=== PATIENT | female | born 1990 | race American Indian/Alaskan Native ===

== ENCOUNTER 2017-05-31 21:20 | Emergency (ER) | payer BC ==
[2017-06-01] MEDS ORDERED: ZOFRAN ORAL LIQ PO ONE (00:19)
[2017-06-01] MEDS ORDERED: TYLENOL PO ONE (00:19)
--- NOTE | 2017-06-01 00:19 | Emergency Department Report ---
ED General Adult HPI - General Chief complaint: Headache Stated complaint: HEADACHE Time Seen by Provider: 06/01/17 00:01 Source: patient, family, RN notes reviewed Mode of arrival: Ambulatory Limitations: No Limitations - History of Present Illness Initial comments: This is a 26-year-old female, the patient is previously unknown to this provider. She denies chronic medical conditions. Patient admits to chronic and frequent headaches. The patient presents to the ER complaining of right- sided headache, which is retro-orbital, retroauricular, radiates to the neck, present for 3 days. The pain is achy and throbbing, it is intermittent and waxing and waning over the past 3 days. The headache is not sudden or thunderclap in nature, and it did not reach maximal testing within an hour. There is no fevers. No ear pain. No change in auditory acuity. A few episodes of nausea and vomiting. Headache does not have exacerbating or relieving factors, patient is not certain if she is . -: Gradual Location: head Radiation: neck Consistency: intermittent Improves with: none Worsens with: none Associated Symptoms: nausea/vomiting, weakness - Related Data Previous Rx's Medication Instructions Recorded Last Taken Type Acetaminophen [Tylenol Arthritis] 650 mg PO Q6HR PRN #30 tablet.er 06/01/17 Unknown Rx Ibuprofen [Motrin] 600 mg PO Q8H PRN #30 tablet 06/01/17 Unknown Rx Metoclopramide [Reglan] 10 mg PO QID PRN #30 tablet 06/01/17 Unknown Rx Allergies Allergy/AdvReac Type Severity Reaction Status Date / Time Sulfa (Sulfonamide Allergy Rash Verified 05/31/17 21:51 Antibiotics) ED Review of Systems ROS: Stated complaint: HEADACHE Other details as noted in HPI Constitutional: malaise. denies: fever Eyes: denies: eye discharge, vision change ENT: denies: ear pain, throat pain Respiratory: denies: cough Cardiovascular: denies: chest pain Gastrointestinal: vomiting Genitourinary: denies: dysuria Musculoskeletal: denies: back pain Skin: denies: lesions Neurological: weakness ED Past Medical Hx - Past Medical History Previous Medical History?: No - Surgical History Past Surgical History?: No - Social History Smoking Status: Never Smoker Substance Use Type: None - Medications Home Medications: Home Medications Medication Instructions Recorded Confirmed Last Taken Type Acetaminophen [Tylenol Arthritis] 650 mg PO Q6HR PRN #30 tablet.er 06/01/17 Unknown Rx Ibuprofen [Motrin] 600 mg PO Q8H PRN #30 tablet 06/01/17 Unknown Rx Metoclopramide [Reglan] 10 mg PO QID PRN #30 tablet 06/01/17 Unknown Rx ED Physical Exam - General Limitations: No Limitations General appearance: alert, in no apparent distress - Head Head exam: Present: atraumatic, normocephalic - Eye Eye exam: Present: normal appearance, PERRL, EOMI, other (visual acuity intact to finger counting, color perception, reading at a close distance). Absent: nystagmus - ENT ENT exam: Present: normal exam, normal orophraynx, mucous membranes moist, TM's normal bilaterally, normal external ear exam, other (there is no mastoid tenderness. No vesicles noted.) - Neck Neck exam: Present: normal inspection, full ROM, other (no meningeal signs). Absent: tenderness, meningismus - Respiratory Respiratory exam: Present: normal lung sounds bilaterally. Absent: respiratory distress, wheezes, rales, rhonchi, stridor, chest wall tenderness, accessory muscle use, decreased breath sounds, prolonged expiratory - Cardiovascular Cardiovascular Exam: Present: regular rate, normal rhythm, normal heart sounds. Absent: bradycardia, tachycardia, irregular rhythm, systolic murmur, diastolic murmur, rubs, gallop - GI/Abdominal GI/Abdominal exam: Present: soft, normal bowel sounds. Absent: distended, tenderness, guarding, rebound, rigid, pulsatile mass - Extremities Exam Extremities exam: Present: normal inspection, full ROM, normal capillary refill. Absent: tenderness, pedal edema, joint swelling, calf tenderness - Back Exam Back exam: Present: normal inspection, full ROM. Absent: tenderness, CVA tenderness (R), CVA tenderness (L), muscle spasm, paraspinal tenderness, vertebral tenderness - Neurological Exam Neurological exam: Present: alert, oriented X3, normal gait, other (Extraocular movements intact. Tongue midline. No facial droop. Facial sensation intact to light touch in the V1, V2, V3 distribution bilaterally. 5 and 5 strength in 4 extremities.. Sensation is intact to light touch in 4 extremities.). Absent : motor sensory deficit - Psychiatric Psychiatric exam: Present: normal affect, normal mood - Skin Skin exam: Present: warm, dry, intact, normal color. Absent: rash ED Course Vital Signs 05/31/17 06/01/17 21:47 00:28 Temperature 98.0 F Pulse Rate 107 H 99 H Respiratory 18 18 Rate Blood Pressure 121/80 Blood Pressure 130/98 [Left] O2 Sat by Pulse 98 98 Oximetry ED Medical Decision Making - Lab Data Vital Signs 05/31/17 06/01/17 21:47 00:28 Temperature 98.0 F Pulse Rate 107 H 99 H Respiratory 18 18 Rate Blood Pressure 121/80 Blood Pressure 130/98 [Left] O2 Sat by Pulse 98 98 Oximetry - Medical Decision Making Differential diagnosis: Migraine headache, tension headache, cluster headache, headache not otherwise specified Assessment and plan: 26-year-old female with nonspecific headache, she is afebrile, with reassuring vital signs, tachycardia has resolved, has a GCS of 15 , with an NIH score of 0. NO cervical spine tenderness, no carotid bruit or expansile hematoma, no neck stiffness Patient very well appearing, headache most likely benign, patient will be treated symptomatically, she is instructed to start keeping a headache diary, and she should follow-up with an outpatient primary care doctor or neurology specialist. Critical care attestation.: If time is entered above; I have spent that time in minutes in the direct care of this critically ill patient, excluding procedure time. ED Disposition Clinical Impression: Headache Disposition: DC-01 TO HOME OR SELFCARE Is pt being admited?: No Does the pt Need Aspirin: No Condition: Stable Instructions: Acute Headache (ED) Additional Instructions: Take the medications as needed for headache, nausea, vomiting. Begin keeping a headache diary. Headache diary Pdf/format can be found at the following: http:// www.headaches.org/wp-content/uploads//548120876-Qsnsrllf-Yamyg-fozi-sgu- [email or web address].pdf Follow-up with her primary care doctor or neurology specialist within the next 3 -4 weeks. Return to the ER right away with new pain, worsened pain, migration of pain, fevers, chills, lethargy, irritability, projectile vomiting, change in mental status, inability to tolerate liquid feeds. Referrals: LEXUS CHOWDHURY MD [Primary Care Provider] - 3-5 Days PARK LOUISE MD [Staff Physician] - 3-5 Days JOSH SCHWAB MD [Staff Physician] - 3-5 Days JAMAL GRANADO MD [Staff Physician] - 3-5 Days PATRICIA OG MD [Staff Physician] - 3-5 Days CIPRIANO OG MD [Referring] - 3-5 Days
[2017-06-01 00:29] VITALS: BP 130/98
[2017-06-01] MEDS ORDERED: TORADOL IV ONE (01:40)
[2017-06-01] MEDS ORDERED: TORADOL IM ONE (02:01)
[2017-06-01] MEDS ORDERED: TORADOL ONE (02:06)
== END 2017-06-01 02:20 | disposition home or self-care (01) ==
LOC: ED 21:20
DX: R51 Headache (principal); Z88.2 Allergy status to sulfonamides
CPT/HCPCS: 81025; 96372; 99283; J1885; Q0162

== ENCOUNTER 2017-06-06 21:29 | Emergency (ER) | payer BC ==
--- NOTE | 2017-06-07 00:20 | Cat Scan Report ---
FINAL REPORT PROCEDURE: CT HEAD/BRAIN WO CON TECHNIQUE: Computerized tomography of the head was performed without contrast material. HISTORY: headache COMPARISON: No prior studies are available for comparison. FINDINGS: Skull and scalp: Normal. Paranasal sinuses: Normal. Ventricles and subarachnoid spaces: Normal. Cerebrum: There are small foci of subarachnoid hemorrhage along the lateral posterior right temporal lobe. Small extra-axial hemorrhage in the region of the right tentorium is identified. This region noted the tentorium measures approximately 7 millimeters. No midline displacement or mass effect is seen. No acute infarction. No midline displacement. The ventricles have a normal appearance.. Cerebellum and brainstem: No evidence of hemorrhage, acute infarction or mass. Vasculature: Normal. Comments: None. IMPRESSION: There are small foci of subarachnoid hemorrhage along the lateral posterior right temporal lobe. A small extra-axial hemorrhage identified in the region of the right tentorium is noted. This may represent a small subarachnoid hemorrhage or a beginning subdural hemorrhage in this region. This measures up to 7 millimeters. No midline displacement or mass effect is identified. The above findings are discussed with the patient's ER physician at the time of dictation 23:17 central standard time on 06/06/2017
[2017-06-07] MEDS ORDERED: MORPHINE IV ONE (00:46)
[2017-06-07] MEDS ORDERED: ZOFRAN ODT PO ONE (00:46)
[2017-06-07] MEDS ORDERED: MORPHINE ONE (00:47)
[2017-06-07] MEDS ORDERED: NACL 0.9% 1000 ML 1,000 ML IV ONE (00:47)
[2017-06-07] MEDS ORDERED: ZOFRAN ONE (00:49)
[2017-06-07 01:48] LABS: Basophils % (Auto) 0.3 % (0.0-1.8); Eosinophils % (Auto) 0.1 % (0.0-4.3); Hematocrit 40.6 % (30.3-42.9); Hemoglobin 13.7 gm/dl (10.1-14.3); Mean Corpuscular HGB Conc 34 % (30-34); Mean Corpuscular Hemoglobin 30 pg (28-32); Mean Corpuscular Volume 88 fl (79-97); Platelet Count 276 K/mm3 (140-440); Red Cell Distribution Width 13.1 % (13.2-15.2); White Blood Count 10.1 K/mm3 (4.5-11.0)
[2017-06-07] MEDS ORDERED: FIORICET PO ONE (02:05)
[2017-06-07 02:11] LABS: INR 1.05 (0.87-1.13)
[2017-06-07 02:12] LABS: Partial Thromboplastin Time 26.7 Sec. (24.2-36.6)
[2017-06-07 02:14] LABS: Alanine Aminotransferase 10 units/L (7-56); Albumin 4.3 g/dL (3.9-5); Albumin/Globulin Ratio 1.4 %; Alkaline Phosphatase 45 units/L (35-129); Anion Gap 20 mmol/L; Blood Urea Nitrogen 11 mg/dL (7-17); Calcium 9.2 mg/dL (8.4-10.2); Carbon Dioxide 23 mmol/L (22-30); Chloride 99.7 mmol/L (98-107); Glucose 120 mg/dL (65-100); Potassium 4.1 mmol/L (3.6-5.0); Sodium 139 mmol/L (137-145); Total Protein 7.4 g/dL (6.3-8.2)
[2017-06-07 02:29] VITALS: BP 122/86
--- NOTE | 2017-06-07 02:31 | Emergency Department Report ---
ED Headache HPI - General Chief Complaint: Headache Stated Complaint: SEVERE HEADACHE, DIZZINESS Time Seen by Provider: 06/07/17 00:23 - History of Present Illness Initial Comments: Pt presents to ED with worsening of he headaches. Pt was seen here for similar problem about 1 week ago. She was evaluated here and sent for with pain meds. Pt followed up with her PCP, whom assessed her as having Migraines and started her on some medicines. Pt's problem continues and she returns back to ED to be re-evaluated. Pt has nausea. Intensity is 10/ . No change in headaches with laying supine or sitting up Quality: severe, sharp, throbbing Head Injury Location: temporal (right side) Associated Symptoms: nausea/vomiting, stiff neck, weakness. denies: facial pain , fever/chills, loss of consciousness, nasal drainage, numbness in legs/feet, seizures, sinus infection, vision changes Allergies/Adverse Reactions: Allergies Sulfa (Sulfonamide Antibiotics) Allergy (Verified 05/31/17 21:51) Rash Home Medications: Ambulatory Orders Acetaminophen [Tylenol Arthritis] 650 mg PO Q6HR PRN #30 tablet.er 06/01/17 Ibuprofen [Motrin] 600 mg PO Q8H PRN #30 tablet 06/01/17 Metoclopramide [Reglan] 10 mg PO QID PRN #30 tablet 06/01/17 ED Review of Systems ROS: Stated complaint: SEVERE HEADACHE, DIZZINESS Other details as noted in HPI Comment: All other systems reviewed and negative Constitutional: see HPI, weakness. denies: diaphoresis, fever, malaise Eyes: vision change. denies: eye discharge ENT: denies: as per HPI, throat pain, dental pain Respiratory: denies: cough, shortness of breath Cardiovascular: denies: chest pain, palpitations, dyspnea on exertion, edema Endocrine: no symptoms reported Gastrointestinal: nausea, vomiting. denies: abdominal pain, constipation Genitourinary: denies: urgency, dysuria, frequency, hematuria Musculoskeletal: denies: arthralgia, myalgia Skin: denies: as per HPI, rash, change in color, change in hair/nails Neurological: headache, weakness Psychiatric: denies: depression, auditory hallucinations, visual hallucinations ED Past Medical Hx - Past Medical History Previous Medical History?: No - Surgical History Past Surgical History?: No - Social History Smoking Status: Never Smoker Substance Use Type: None - Medications Home Medications: Home Medications Medication Instructions Recorded Confirmed Last Taken Type Acetaminophen [Tylenol Arthritis] 650 mg PO Q6HR PRN #30 tablet.er 06/01/17 Unknown Rx Ibuprofen [Motrin] 600 mg PO Q8H PRN #30 tablet 06/01/17 Unknown Rx Metoclopramide [Reglan] 10 mg PO QID PRN #30 tablet 06/01/17 Unknown Rx ED Physical Exam - General Limitations: No Limitations General appearance: alert, anxious, in distress (moderate) - Head Head exam: Present: atraumatic, normocephalic, normal inspection - Eye Eye exam: Present: normal appearance, PERRL, EOMI. Absent: scleral icterus, conjunctival injection, nystagmus Pupils: Present: normal accommodation - ENT ENT exam: Present: normal exam, normal orophraynx, mucous membranes moist - Neck Neck exam: Present: normal inspection, full ROM. Absent: tenderness, meningismus, lymphadenopathy, thyromegaly - Respiratory Respiratory exam: Present: normal lung sounds bilaterally. Absent: respiratory distress, rhonchi, chest wall tenderness, accessory muscle use, decreased breath sounds, prolonged expiratory - Cardiovascular Cardiovascular Exam: Present: regular rate, normal rhythm, normal heart sounds - GI/Abdominal GI/Abdominal exam: Present: soft, normal bowel sounds. Absent: distended, tenderness, guarding, rebound, diminished bowel sounds, hyperactive bowel sounds , hypoactive bowel sounds - Rectal Rectal exam: Present: deferred - Extremities Exam Extremities exam: Present: normal inspection, full ROM, normal capillary refill. Absent: pedal edema, joint swelling - Back Exam Back exam: Present: normal inspection, full ROM. Absent: CVA tenderness (L), muscle spasm, paraspinal tenderness - Neurological Exam Neurological exam: Present: alert, oriented X3, CN II-XII intact, normal gait, motor sensory deficit, reflexes normal ED Course Vital Signs 06/06/17 06/07/17 06/07/17 22:03 00:10 00:50 Temperature 99 F 99.7 F H Pulse Rate 79 98 H Respiratory 16 20 20 Rate Blood Pressure 116/71 Blood Pressure 130/80 [Left] O2 Sat by Pulse 100 100 Oximetry - Consultations Consultation #1: 06/07/17 01:[address] Munoz of [place], Neuro vascular surgeon, he accepts pt's transfer ED Medical Decision Making - Lab Data Result diagrams: 06/07/17 01:34 06/07/17 01:34 Critical care attestation.: If time is entered above; I have spent that time in minutes in the direct care of this critically ill patient, excluding procedure time. ED Disposition Clinical Impression: Subdural hemorrhage, Subarachnoid hemorrhage Disposition: DC/TX-70 ANOTHER TYPE HLTHCARE Is pt being admited?: No Does the pt Need Aspirin: No Condition: Serious Referrals: NORRIS YUSUF JR, MD [Primary Care Provider] - 3-5 Days Time of Disposition: 02:39
[2017-06-07 02:33] LABS: Erythrocyte Sedimentation Rate 22 mm/Hr (0-20)
== END 2017-06-07 03:01 | disposition other institution (70) ==
LOC: EEVIPCON 21:29 → ED 21:29
DX: I62.00 Nontraumatic subdural hemorrhage, unspecified (principal); I60.9 Nontraumatic subarachnoid hemorrhage, unspecified; Z88.2 Allergy status to sulfonamides
CPT/HCPCS: 36415; 70450; 80053; 81025; 85025; 85610; 85652; 85730; 96361; 96374; 99285; J2270; J2405; J7030

== ENCOUNTER 2017-08-26 12:41 | Outpatient (CLI) | payer BC ==
--- NOTE | 2017-08-28 08:50 | Magnetic Resonance Report ---
MR angiogram was performed of the intracranial circulation 3-D [id number] spoiled grass images were obtained of the intracranial circulation. The images of the carotid arteries showed no areas of occlusion or aneurysmal dilatation. The vertebral basilar system was also patent without any evidence of occlusive disease. An mr venogram was also performed. There was poor flow from the sagittal sinus into the torcula. There was also poor flow from the left transverse sinus into the torcula. Impression:1. Normal MR angiogram of the intracranial circulation. 2. Abnormal mr venogram with poor flow from the sagittal sinus into the torcula and poor flow from the left transverse sinus into the torcula
--- NOTE | 2017-08-28 08:54 | Magnetic Resonance Report ---
MR scan of the cranium was performed without contrast. Pulse sequences included: 1. T1 weighted sagittal and axial images without contrast 2. T2 weighted axial and coronal images 3. FLAIR axial images 4. Diffusion-weighted axial images 5. Apparent diffusion coefficient images 6. Gradient echo axial images Views of the posterior fossa showed a normal craniocervical junction. Cerebellar pontine angles were normal with normal seventh-eighth nerve complexes. Brainstem and cerebellum were normal. The ventricular system showed no dilatation or distortion. Images of the hemispheres showed no areas of increased or decreased signal. Sinuses, flow voids in the [place], orbits, pituitary and basal ganglia were normal. Impression: Normal MR scan of the cranium without contrast.
== END 2017-08-26 12:42 | disposition home or self-care (01) ==
LOC: SPVWC 12:41
PROVIDERS: ATTEND Specialist
DX: I63.9 Cerebral infarction, unspecified (principal)
CPT/HCPCS: 70544; 70551